=== PATIENT | female | born 1995 | race Caucasian/White ===

== ENCOUNTER 2019-09-13 19:34 | Emergency (ER) | payer OTHER ==
[2019-09-13 19:39] VITALS: RESP 16
[2019-09-13] MEDS ORDERED: DIPH,PERTUS(ACELL)TETVAC-LF 0.5 ML VIAL IM ONE (19:45)
[2019-09-13] MEDS ORDERED: LIDOCAINE 1% INJ 10MG/ML (20 ML MDV) SQ ONE (20:12)
--- NOTE | 2019-09-13 20:16 | XR ---
EXAMINATION TYPE: XR hand complete RT DATE OF EXAM: 09/13/2019 COMPARISON: Single view HISTORY: Laceration second MP joint TECHNIQUE: 3 views FINDINGS: Metacarpals appear intact. I see no fracture nor dislocation. Joint spaces appear normal. T here are no erosions. There are no pathologic calcifications. IMPRESSION: Negative right hand exam.
--- NOTE | 2019-09-13 20:30 | ED ---
General Adult HPI - General Chief complaint: Wound/Laceration Stated complaint: CUT FINGER Time Seen by Provider: 09/13/19 19:38 Source: patient, RN notes reviewed, old records reviewed Mode of arrival: ambulatory Limitations: no limitations - History of Present Illness Initial comments: 24-year-old female presents with laceration at the base of the right second digit. Patient was washing dishes, glass broke and she cut the dorsal surface of the right hand at the base of the second digit. No other injury. Patient uncertain of her tetanus status. She is able to move the finger. - Related Data Allergies Allergy/AdvReac Type Severity Reaction Status Date / Time ibuprofen Allergy Anaphylaxis Verified 09/13/19 19:39 Review of Systems ROS Statement: Those systems with pertinent positive or pertinent negative responses have been documented in the HPI. ROS Other: All systems not noted in ROS Statement are negative. Past Medical History Past Medical History: No Reported History History of Any Multi-Drug Resistant Organisms: None Reported Past Surgical History: No Surgical Hx Reported Past Psychological History: No Psychological Hx Reported Smoking Status: Never smoker Past Alcohol Use History: None Reported Past Drug Use History: None Reported General Exam Limitations: no limitations General appearance: alert, in no apparent distress Head exam: Present: atraumatic, normocephalic Eye exam: Present: normal appearance, PERRL ENT exam: Present: normal exam Neck exam: Present: normal inspection. Absent: tenderness, meningismus Respiratory exam: Present: normal lung sounds bilaterally. Absent: respiratory distress, wheezes Cardiovascular Exam: Present: regular rate, normal rhythm GI/Abdominal exam: Present: soft. Absent: distended, tenderness Extremities exam: Present: other (2.5 cm laceration on the dorsal surface of the right hand at the base of the second digit horseshoe shaped) Course Vital Signs 09/13/19 19:37 Temperature 97.9 F Pulse Rate 78 Respiratory 16 Rate Blood Pressure 178/116 O2 Sat by Pulse 96 Oximetry Procedures - Laceration Laceration #1 Consent Obtained: verbal consent Indication: laceration Site: upper extremity Description: flap, irregular Anesthetic Used: lidocaine 1% Anesthesia Technique: local infiltration Amount (mls): 5 Pre-repair: wound explored, irrigated extensively, deep structures intact Type of Sutures: nylon Size of Sutures: 5-0 Number of Sutures: 5 Technique: simple, interrupted Medical Decision Making - Medical Decision Making Laceration repaired, tetanus updated, x-ray obtained negative for foreign body, patient will return for suture removal in 10-14 days. Disposition Clinical Impression: Laceration Disposition: HOME SELF-CARE Condition: Good Instructions (If sedation given, give patient instructions): Laceration (ED), Care For Your Stitches (ED) Is patient prescribed a controlled substance at d/c from ED?: No Referrals: Stephan Gama MD [Primary Care Provider] - 1-2 days Time of Disposition: 20:30
[2019-09-13 20:38] VITALS: BP 114/76; PULSE 70; TEMP 98.1
== END 2019-09-13 20:38 | disposition home or self-care (01) ==
LOC: EC 19:34
DX: S61.210A Laceration without foreign body of right index finger without damage to nail, initial encounter (principal); Z23 Encounter for immunization; Z88.6 Allergy status to analgesic agent; W25.XXXA Contact with sharp glass, initial encounter; Y93.G1 Activity, food preparation and clean up
CPT/HCPCS: 73130; 90715; 99283; 90471; J2001

== ENCOUNTER → 2021-08-13 | Outpatient (CLI) | payer SELFPAY ==
[~2021-08-13] MED LIST: CASIRIVIMAB/IMDEVIMAB (EUA) 1,200 MG in SODIUM CHLORIDE 0.9% 100 ML IVPB ONE; SODIUM CHLORIDE 0.9% 50 ML IVPB ONE; SODIUM CHLORIDE 0.9% 500 ML 500 ML in EMPTY BAG 1 BAG IV PRN
[2021-08-13 11:53] VITALS: BP 124/83; PULSE 67; RESP 16; TEMP 98.5
== END ==
LOC: PROCWHC3 10:03
PROVIDERS: ATTEND Family Medicine
DX: U07.1 COVID-19 (principal); E66.9 Obesity, unspecified; Z68.36 Body mass index [BMI] 36.0-36.9, adult; Z88.6 Allergy status to analgesic agent
CPT/HCPCS: 96360; Q0243; M0243